=== PATIENT | female | born 1960 | race Caucasian/White ===

== ENCOUNTER → 2017-01-18 | Outpatient (CLI) | payer OTHER | END | disposition home or self-care (01) | LOC: YCFC.O 09:50 | PROVIDERS: ATTEND Nurse Practitioner Family | DX: E78.2 Mixed hyperlipidemia (principal); I10 Essential (primary) hypertension; E06.5 Other chronic thyroiditis; R53.83 Other fatigue; Z13.29 Encounter for screening for other suspected endocrine disorder; Z68.39 Body mass index [BMI] 39.0-39.9, adult ==

== ENCOUNTER → 2017-03-01 | Outpatient (CLI) | payer OTHER | END | disposition home or self-care (01) | LOC: YCFC.O 11:19 | PROVIDERS: ATTEND Nurse Practitioner Family | DX: N89.8 Other specified noninflammatory disorders of vagina (principal) ==

== ENCOUNTER → 2017-04-15 | Outpatient (CLI) | payer MEDICAID | END | disposition home or self-care (01) | LOC: LAB.O 08:39 | PROVIDERS: ATTEND Nurse Practitioner Family | DX: E78.2 Mixed hyperlipidemia (principal); E11.9 Type 2 diabetes mellitus without complications ==

== ENCOUNTER → 2017-04-18 | Outpatient (CLI) | payer OTHER ==
--- NOTE | 2017-04-19 12:27 | MAM ---
EXAM DESCRIPTION: Screening Mammogram,Bilateral: Digital Mammography CLINICAL HISTORY: 56 years Female SCREENING history by radiology. COMPARISON: 2-D digital screening bilateral study 10/20/2015 and 2-D diagnostic digital bilateral study 06/23/2013.. No prior reports available. TECHNIQUE: Bilateral CC and MLO projection full-field images, 2-D digital screening mammographic technique. CAD was utilized. FINDINGS: The breast parenchymal density pattern is: Scattered areas of fibroglandular density. No skin thickening or nipple retraction bilateral axillary and intramammary lymph nodes. No focal, stellate mass or density, focal asymmetry , and no suspicious microcalcifications bilaterally. Stable mammograms compared to the prior study, taking into account differences in mammographic technique. IMPRESSION: BI-RADS CATEGORY: 2 - BENIGN FINDINGS. FOLLOW UP: Routine digital bilateral screening, one year interval from April 2017. Written communication explaining the IMPRESSION and follow-up, will be mailed to the patient and referring health care provider. According to the [employer], yearly mammograms are recommended starting at age 40 and continuing as long as a woman is in good health. Any breast change noted on a breast self-exam should be reported promptly to the patient's healthcare provider. Breast MRI is recommended for women with an approximately 20-25% or greater lifetime risk of breast cancer, including women with a strong family history of breast or ovarian cancer and women who have been treated for Hodgkin's disease. A negative mammographic report should not delay tissue diagnosis in patients with significant clinical history or physical findings. Extremely dense breast tissue limits the sensitivity of digital mammography. Electronically signed by: Eliud De La O MD 04/19/2017 12:26 PM [facility]
== END | disposition home or self-care (01) ==
LOC: YCFC.O 09:29
PROVIDERS: ATTEND Nurse Practitioner Family
DX: Z12.31 Encounter for screening mammogram for malignant neoplasm of breast (principal)

== ENCOUNTER → 2017-10-10 | Outpatient (CLI) | payer OTHER | LOC: YCFC.O 09:10 | PROVIDERS: ATTEND Nurse Practitioner Family | DX: E78.2 Mixed hyperlipidemia (principal); E11.9 Type 2 diabetes mellitus without complications; I10 Essential (primary) hypertension ==

== ENCOUNTER 2017-12-20 09:06 | Emergency (ER) | payer OTHER ==
[2017-12-20 09:20] VITALS: TEMP 98.1; O2SAT 98
[2017-12-20] MEDS ORDERED: KETOROLAC TROMETHAMINE INJ 60 MG/2 ML VIAL IM ONE (09:31)
[2017-12-20] MEDS ORDERED: CYCLOBENZAPRINE HCL 10 MG TAB PO ONE (09:31)
--- NOTE | 2017-12-20 09:34 | ED.PDOC ---
History of Present Illness - General Chief Complaint: Neck Injury/Pain Stated Complaint: woke up with Time Seen by Provider: 12/20/17 09:31 Source: patient Exam Limitations: no limitations - History of Present Illness Initial Comments: patient comes in today with severe left sided neck and shoulder pain. Patient states she woke up with it stiff and difficult to move. She states she has very severe pain if she tries to move her head. Yesterday she was moving furniture and did work this early harder than her normal baseline. She has no other acute complaints no headache, vision change, chest pain or shortness of breath. Her blood pressure is very elevated but she admits she did just take her blood pressure pill and often is uncontrolled usually in the 160s systolic. Patient has no other acute complaints Occurred: this morning Pain - Upper Extremity: severe: Shoulder, left Method of Injury: other - see dictated note Improving Factors: rest Worsening Factors: movement Allergies/Adverse Reactions: Allergies Codeine Allergy (Verified 12/20/17 09:20) Vomitting Home Medications: Ambulatory Orders Metformin HCl 01/26/14 Micardis 01/26/14 Paxil 01/26/14 Valsartan 01/26/14 Cyclobenzaprine HCl [Flexeril] 5 mg PO TID 5 Days #15 tab 12/20/17 Review of Systems - Review of Systems Constitutional: States: no symptoms reported. Denies: chills, fever EENTM: States: no symptoms reported Respiratory: States: no symptoms reported. Denies: cough, wheezing Cardiology: States: no symptoms reported. Denies: chest pain Gastrointestinal/Abdominal: States: no symptoms reported. Denies: abdominal pain, vomiting Musculoskeletal: States: see HPI Past Medical History (General) - Patient Medical History Hx Stroke: Yes - TIA x 4 Hx of COPD: Yes Hx Cardiac Disorders: Yes Hx Congestive Heart Failure: No Hx Pacemaker: No Hx Hypertension: Yes Hx Diabetes: Yes Hx Renal Disease: Yes Hx Hepatitis C: Yes Hx MRSA: Yes - Skin 2007 MRSA Source:: Wound Surgical History: cholecystectomy, Hysterectomy, other - Vaccination History Hx Influenza Vaccination: No Hx Pneumococcal Vaccination: Yes - 2011 - Social History Hx Tobacco Use: Yes Family Medical History - Family History Mother Family History: No Known Living Status: Still Living Physical Exam - Physical Exam General Appearance: No apparent distress Eyes, Ears, Nose, Throat Exam: PERRL/EOMI, normal ENT inspection, TMs normal Neck: other - L sternocleidomastoid with tightness and pain to palpation but no defect. Cardiovascular/Respiratory: regular rate, rhythm, no M/R/G, normal peripheral pulses, no JVD, normal breath sounds, no respiratory distress Abdominal Exam: non-tender Shoulder Exam: normal inspection, non-tender, no evidence of injury, normal ROM Elbow/Forearm Exam: normal inspection, non-tender, no evidence of injury, normal ROM Wrist Exam: normal inspection, non-tender, no evidence of injury DTR: 2+: Biceps, left Neuro/Tendon: normal sensation, normal motor functions, normal tendon functions Mental Status: alert, oriented x 3 Skin Exam: normal color Progress - Progress Progress: 12/20/17 09:36 Discussed with patient need to slowly move the area and should put heat to area today. Sedation precautions with the flexeril. Should use OTC IBU 800 mg po BID x 5 days. Follow up with PCP if not better in 2-3 days. Return to ER for increased pain, decreased sensation or change in symptoms. Departure - Departure Clinical Impression: Sternocleidomastoid muscle tenderness Disposition: Discharge to Home or Self Care Condition: Good Departure Forms: ED Discharge - Pt. Copy, Patient Portal Self Enrollment Instructions: DI for Neck Pain Diet: diabetic diet Activity: increase activity as tolerated Referrals: Gayatri Figueroa NP [Primary Care Provider] - 1-2 Weeks Prescriptions: Cyclobenzaprine HCl [Flexeril] 5 mg PO TID 5 Days #15 tab Home Medications: Ambulatory Orders Metformin HCl 01/26/14 Micardis 01/26/14 Paxil 01/26/14 Valsartan 01/26/14 Cyclobenzaprine HCl [Flexeril] 5 mg PO TID 5 Days #15 tab 12/20/17 Additional Instructions: Discussed with patient need to slowly move the area and should put heat to area today. Sedation precautions with the flexeril. Should use OTC IBU 800 mg po BID x 5 days. Follow up with PCP if not better in 2-3 days. Return to ER for increased pain, decreased sensation or change in symptoms.
[2017-12-20 10:03] VITALS: BP 164/102
== END 2017-12-20 09:50 | disposition home or self-care (01) ==
LOC: ER 09:06
DX: M54.2 Cervicalgia (principal); M25.512 Pain in left shoulder; E11.22 Type 2 diabetes mellitus with diabetic chronic kidney disease; I12.9 Hypertensive chronic kidney disease with stage 1 through stage 4 chronic kidney disease, or unspecified chronic kidney disease; N18.9 Chronic kidney disease, unspecified; J44.9 Chronic obstructive pulmonary disease, unspecified; I51.9 Heart disease, unspecified; Z87.891 Personal history of nicotine dependence; Z86.73 Personal history of transient ischemic attack (TIA), and cerebral infarction without residual deficits; Z79.84 Long term (current) use of oral hypoglycemic drugs; Z79.899 Other long term (current) drug therapy

== ENCOUNTER 2018-05-08 11:20 | Inpatient (IN) | payer OTHER ==
--- NOTE | 2018-05-08 12:03 | RAD ---
EXAM DESCRIPTION: Chest,1 View CLINICAL HISTORY: Right-sided facial numbness. Dysarthria. Stroke FINDINGS/ IMPRESSION: Normal cardiomediastinal silhouette. No edema, infiltrate or effusion Electronically signed by: Faisal Gonzalez MD 05/08/2018 12:02 PM [facility]
--- NOTE | 2018-05-08 12:08 | CT ---
EXAM DESCRIPTION: CT head without contrast CLINICAL HISTORY: Dysarthria. Facial numbness. Stroke. TIA COMPARISON: MRI brain 10/06/2015 TECHNIQUE: Noncontrast spiral CT of the brain. This exam was performed according to our departmental dose-optimization program, which includes automated exposure control, adjustment of the mA and/or kV according to patient size and/or use of iterative reconstruction technique FINDINGS: No intracranial hemorrhage, diagnostic acute cortical infarction or mass lesion. Normal manzanares-white matter differentiation. Basal ganglia signal abnormality caudate head on the left, previous remote lacunar/dilated perivascular space seen on previous MRI. Hypodensity anterior column internal capsule probably remote although not seen on the CT from October 2015. Hypodensity in the deep right frontal crisostomo radiata more suggestive of an acute white matter infarct. Other periventricular hypodensity likely remote microvascular ischemia Ventricles are normal in size and configuration No calvarial or skullbase fracture. No fluid in the paranasal sinuses or mastoid air cells IMPRESSION: Concern for acute infarct right frontal deep crisostomo radiata/anterior column junction. CT is insensitive for early evaluation of acute stroke. Recommend MRI. White matter disease bilaterally likely remote microvascular ischemia as well Electronically signed by: Faisal Gonzalez MD 05/08/2018 12:07 PM [facility]
[2018-05-08] MEDS ORDERED: METOPROLOL TARTRATE INJ 5 MG/5 ML VIAL IV ONE ×2 (12:25→12:28)
[2018-05-08] MEDS ORDERED: SODIUM CHLORIDE 0.9% 1000ML 1,000 ML IVS ONE (13:16)
[2018-05-08] MEDS ORDERED: MAGNESIUM SULFATE PREMIX 2GM 2 GM in PREMIX BAG 1 BAG IVPB ONE (13:16)
[2018-05-08] MEDS ORDERED: INSULIN, REG.(HUMAN) 100 U/ML VIAL IV ONE (13:16)
[2018-05-08] MEDS ORDERED: cefTRIAXone SODIUM 1 GM in SODIUM CHL 0.9% 50ML MIN-BAG+ 50 ML IVPB ONE (13:17)
[2018-05-08] MEDS ORDERED: ASPIRIN TABLET 325 MG TAB PO ONE (13:18)
[2018-05-08] MEDS ORDERED: cefTRIAXone SODIUM 1 GM VIAL ONE (13:23)
[2018-05-08] MEDS ORDERED: MAGNESIUM SULFATE PREMIX 2GM 50 ML IVPB ONE (13:23)
[2018-05-08] MEDS ORDERED: SODIUM CHL 0.9% 50ML MIN-BAG+ 50 ML IVPB ONE (13:23)
--- NOTE | 2018-05-08 14:11 | ED.PDOC ---
History of Present Illness - General Chief Complaint: Neuro Symptoms/Deficits Stated Complaint: Right sided facial drooping and numbness Time Seen by Provider: 05/08/18 11:32 Source: patient, family Exam Limitations: no limitations - History of Present Illness Initial Comments: the patient is a 57-year-old female presenting to the emergency room secondary to symptoms concerning for stroke. The patient reports that around 1 AM this morning she woke up and had some slurred speech along with a mild facial droop. She thinks she may have had some mild right sided weakness or discoordination as well. No falls. This morning when she woke up at around 7 AM she was having some difficulty with swallowing and was still having some slurred speech and thought she might still have a mild facial droop on the right. By the time she arrives here she is not having any difficulty swallowing but still does have some very mild dysarthria. No expressive aphasia. There is no evidence of any facial asymmetry. No obvious weakness of the right side. Gait appears normal. Coordination appears normal. No visual changes. No trauma. She reports that she has had small strokes and TIAs in the past that she does not appear to be on any blood thinner of any form. She is a diabetic who is poorly controlled. She also has hypertension which is significantly present here today. Timing/Duration: other - 10-11 hours by time of arrival here Improving Factors: nothing Worsening Factors: nothing Associated Symptoms: malaise Allergies/Adverse Reactions: Allergies Codeine Allergy (Verified 12/20/17 09:20) Vomitting Home Medications: Ambulatory Orders Albuterol Sulfate [Proair Hfa] 1 puff INH BID 12/20/17 Esomeprazole Magnesium [Nexium] 40 mg PO DAILY 12/20/17 Insulin Detemir [Levemir Pen] 24 units PO BEDTIME 12/20/17 Valsartan [Diovan] 320 mg PO DAILY 12/20/17 Insulin Aspart [Novolog Flexpen] 20 unit SC DAILY 05/08/18 OXcarbazepine [Trileptal] 600 mg PO DAILY@0700 05/08/18 PARoxetine HCL [Paxil] 20 mg PO DAILY 05/08/18 Review of Systems - Review of Systems Constitutional: States: malaise, weakness - earlier in the night but has resolved EENTM: States: see HPI Respiratory: States: no symptoms reported Cardiology: States: no symptoms reported Gastrointestinal/Abdominal: States: no symptoms reported Genitourinary: States: no symptoms reported Musculoskeletal: States: no symptoms reported Skin: States: no symptoms reported Neurological: States: see HPI All other Systems: No Change from Baseline Past Medical History (General) - Patient Medical History Hx Stroke: Yes - TIA x 4 Hx of COPD: Yes Hx Cardiac Disorders: Yes Hx Congestive Heart Failure: No Hx Pacemaker: No Hx Hypertension: Yes Hx Diabetes: Yes Hx Renal Disease: Yes Hx Hepatitis C: Yes Hx MRSA: Yes - Skin 2007 MRSA Source:: Wound Surgical History: cholecystectomy, Hysterectomy - Vaccination History Hx Influenza Vaccination: No Hx Pneumococcal Vaccination: No - Social History Hx Tobacco Use: No Family Medical History - Family History Mother Family History: No Known Living Status: Still Living Physical Exam - Physical Exam General Appearance: Alert, Comfortable, No apparent distress Eye Exam: bilateral normal Ears, Nose, Throat: hearing grossly normal, normal ENT inspection, normal pharynx Neck: full range of motion, supple, normal inspection Respiratory: lungs clear, normal breath sounds, no respiratory distress, no accessory muscle use Cardiovascular/Chest: normal peripheral pulses, regular rate, rhythm, no edema Peripheral Pulses: radial,right: 2+, radial,left: 2+, dorsalis pedis,right: 2+, dorsalis pedis,left: 2+ Gastrointestinal/Abdominal: non tender, soft Rectal Exam: deferred Back Exam: normal inspection, no CVA tenderness, no vertebral tenderness Extremity: normal range of motion, non-tender, normal inspection, no pedal edema , normal capillary refill Neurologic: bander operator II-XII nml as tested, no motor/sensory deficits, alert, normal mood/affect, oriented x 3, other - hazel mild dysarthria Skin Exam: normal color Comments: Vital Signs - 24 hr 05/08/18 12:00 Temperature 97.9 F Pulse Rate [ 80 Right Brachial] Respiratory 20 Rate Blood Pressure 184/102 [Right Arm] O2 Sat by Pulse 98 Oximetry Progress - Progress Progress: 05/08/18 14:14 the patient is a 57-year-old female presenting to emergency room with what appears to be a small stroke with really only residual mild dysarthria. The patient is really past the window of functional lytics. Her dysphagia appears to be resolved. No other obvious neurological deficits at this time. She does also have significantly uncontrolled diabetes with a blood sugar of 422. She has received a dose of IV insulin and will need further correction over the next day or 2. She is mildly dehydrated and is receiving a liter of IV fluids. Blood pressures are borderline elevated and she has received 1 dose of IV Lopressor and she may yet need further oral correction if they continue to remain above the 180 range on the systolic end. She does also have a small urinary tract infection and will need to be treated for that. Her magnesium was low and she has received a dose of IV magnesium. Admit for further workup and monitoring. Based on the symptoms, timeframe and CT scan I do not believe the patient would benefit from transfer to an interventional neurology Center. the patient has received a dose of aspirin and plavix. 05/08/18 14:18 - Results/Orders Results/Orders: chest x-ray shows no acute processes Head CT shows multiple previous areas of ischemic changes. Possible small acute area in the right frontal crisostomo. Laboratory Tests 05/08/18 05/08/18 05/08/18 11:35 11:35 11:35 WBC 7.4 RBC 4.92 Hgb 14.6 Hct 43.2 MCV 87.8 MCH 29.7 MCHC 33.8 RDW 13.4 Plt Count 249 MPV 8.9 Absolute Neuts (auto) 4.40 Absolute Lymphs (auto) 2.10 Absolute Monos (auto) 0.50 Absolute Eos (auto) 0.20 Absolute Basos (auto) 0.10 Neutrophils % 60.3 Lymphocytes % 28.5 Monocytes % 7.1 Eosinophils % 3.1 Basophils % 1.0 PT 10.4 INR 1.04 PTT (SP) 25.6 D-Dimer, Quantitative 0.26 Sodium 132 L Potassium 3.6 Chloride 96 L Carbon Dioxide 25 Anion Gap 14.6 BUN 12 Creatinine 0.61 BUN/Creatinine Ratio 19.7 Random Glucose 422 H* Serum Osmolality 281.7 Lactic Acid Calcium 9.8 Magnesium 1.5 L Total Bilirubin 0.6 AST 25 ALT 19 Alkaline Phosphatase 84 Creatine Kinase 29 CK-MB (CK-2) 0.8 CK-MB (CK-2) % Not Reportable Troponin I < 0.02 B-Natriuretic Peptide 39.4 Serum Total Protein 8.6 H Albumin 4.2 Globulin 4.4 H Albumin/Globulin Ratio 1.0 L TSH 1.83 Urine Color Urine Appearance Urine pH Ur Specific Rudyard Urine Protein Urine Glucose (UA) Urine Ketones Urine Blood Urine Nitrite Urine Bilirubin Urine Urobilinogen Ur Leukocyte Esterase Urine RBC Urine WBC Ur Epithelial Cells Urine Bacteria 05/08/18 05/08/18 11:35 12:50 WBC RBC Hgb Hct MCV MCH MCHC RDW Plt Count MPV Absolute Neuts (auto) Absolute Lymphs (auto) Absolute Monos (auto) Absolute Eos (auto) Absolute Basos (auto) Neutrophils % Lymphocytes % Monocytes % Eosinophils % Basophils % PT INR PTT (SP) D-Dimer, Quantitative Sodium Potassium Chloride Carbon Dioxide Anion Gap BUN Creatinine BUN/Creatinine Ratio Random Glucose Serum Osmolality Lactic Acid 3.3 H* Calcium Magnesium Total Bilirubin AST ALT Alkaline Phosphatase Creatine Kinase CK-MB (CK-2) CK-MB (CK-2) % Troponin I B-Natriuretic Peptide Serum Total Protein Albumin Globulin Albumin/Globulin Ratio TSH Urine Color Yellow Urine Appearance Cloudy Urine pH 6.0 Ur Specific Rudyard <= 1.005 Urine Protein Negative Urine Glucose (UA) >=1000 H Urine Ketones Negative Urine Blood Trace-lysed H Urine Nitrite Negative Urine Bilirubin Negative Urine Urobilinogen 0.2 Ur Leukocyte Esterase Moderate H Urine RBC 1-3 Urine WBC 20-30 H Ur Epithelial Cells 1-3 Urine Bacteria 1+ - EKG/XRAY/CT CT Ordered: Yes Departure - Departure Clinical Impression: Ischemic stroke, Hypomagnesemia, Uncontrolled insulin dependent diabetes mellitus, Mild dehydration Hypertension Qualifiers: Hypertension type: unspecified Qualified Code(s): I10 - Essential (primary) hypertension Disposition: Admit Patient Referrals: Gayatri Figueroa NP [Primary Care Provider] - 1-2 Weeks Home Medications: Ambulatory Orders Albuterol Sulfate [Proair Hfa] 1 puff INH BID 12/20/17 Esomeprazole Magnesium [Nexium] 40 mg PO DAILY 12/20/17 Insulin Detemir [Levemir Pen] 24 units PO BEDTIME 12/20/17 Valsartan [Diovan] 320 mg PO DAILY 12/20/17 Insulin Aspart [Novolog Flexpen] 20 unit SC DAILY 05/08/18 OXcarbazepine [Trileptal] 600 mg PO DAILY@0700 05/08/18 PARoxetine HCL [Paxil] 20 mg PO DAILY 05/08/18 Decision To Admit - Decistion To Admit Decision to Admit Reason: Medical Nature Decision to Admit Date: 05/08/18 Decision to Admit Time: 14:18
--- NOTE | 2018-05-08 14:43 | HP ---
SUPERVISING PHYSICIAN: Faisal Coppola MD CHIEF COMPLAINT: Right sided facial drooping and numbness. HISTORY OF PRESENT ILLNESS: This is a 57-year-old female who came to the Emergency Room secondary to symptoms that were concerning for stroke. She woke up at approximately 2 AM this morning and said she had some slurred speech and a right sided facial droop. She has had a history of transient ischemic attacks in the past. She has had three prior to this episode. She went back to sleep and woke up at 7 AM and had some difficulty swallowing as well as slurred speech, right sided facial droop and some numbness in her right hand. There were no problems with her right leg. She came to the Emergency Room and in the Emergency Room, her CBC was within normal limits. D-dimer was 0.26 and coags were within normal limits. Sodium was 132, potassium 3.6, chloride 96, carbon dioxide 25, magnesium 1.5, glucose 422, lactic acid 3.3. Her troponin was within normal limits. Her liver enzymes were within normal limits. CT of the head was done and showed concern for acute infarct, right frontal deep crisostomo radiata/anterior column junction, white matter disease bilaterally, likely remote microvascular ischemia as well. Her chest x-ray showed normal cardiomediastinal silhouette, no edema, infiltrate or effusion. I was called for admission to monitor stroke-like symptoms. PAST MEDICAL HISTORY: 1. Transient ischemic attack times four including one today. 2. Chronic obstructive pulmonary disease. 3. Palpitations. 4. Hypertension. 5. Diabetes mellitus, type 2, poorly controlled. 6. Tamika insufficiency. 7. Hepatitis C. 8. History of methicillin-resistant Staphylococcus aureus infection of the wound. PAST SURGICAL HISTORY: 1. Cholecystectomy. 2. Hysterectomy. OUTPATIENT MEDICATIONS: 1. Albuterol sulfate. 2. Nexium. 3. NovoLog insulin. 4. Levemir insulin. 5. Trileptal. 6. Paroxetine. 7. Valsartan. ALLERGIES: CODEINE, SULFA DRUGS. SOCIAL HISTORY: She smokes approximately five cigarettes a day. She drinks a six-pack of beer three to four times a week. She denies any illicit drug use. She is . She has three kids. She lives in [place] and she is disabled. She sees Gayatri Figueroa at [facility]. REVIEW OF SYSTEMS: GENERAL: Positive for malaise and weakness. Negative for fever or weight changes. HEENT: Positive for difficulty swallowing as well as right facial droop and blurry vision. Negative for sinus symptoms, ear pain or sore throat. RESPIRATORY: Negative for wheezing, coughing or shortness of breath. CARDIAC: Negative for chest pain, palpitations or tachycardia. GASTROINTESTINAL: Negative for nausea, vomiting, diarrhea, constipation. GENITOURINARY: Negative for hematuria, dysuria or polyuria. MUSCULOSKELETAL: Positive for right arm weakness and numbness. Negative for arthralgias, myalgias. SKIN: Negative for lesions or rashes. NEUROLOGIC: As per history of present illness. PHYSICAL EXAMINATION: VITAL SIGNS: Heart rate 77. Blood pressure 167/76. Respiratory rate 20. O2 saturation 93% on room air. GENERAL: This is a 57-year-old female patient who is lying in her hospital bed. She is in no acute distress. HEENT: Normocephalic, atraumatic. Pupils are equal and reactive. Oropharynx is clear. NECK: Supple without mass. RESPIRATORY: Essentially clear to auscultation bilaterally. CHEST: There is equal rise and fall of the chest with inspiration and expiration. CARDIOVASCULAR: Regular rate and rhythm. GASTROINTESTINAL: Abdomen is soft, nondistended, nontender. Bowel sounds are positive. EXTREMITIES: No cyanosis, clubbing or edema. There are equal record press operator bilaterally to her upper extremities. NEUROLOGIC: Cranial nerves II-XII are grossly intact. She is alert and oriented times three. She has very mild dysarthria. SKIN: Warm and dry. LABORATORY: Her followup lactic acid is 1.3. Blood sugars have run between 155 and 265. Urine culture is pending. Carotid artery ultrasound shows high velocity flow in the right internal carotid artery consistent with 50% to 69% proximal stenosis. All other labs and films have been reviewed via the EMR. IMPRESSION: 1. Transient ischemic attack with right sided weakness, slurred speech and blurry vision that was transient in nature and has resolved. 2. Hypertension. 3. Chronic obstructive pulmonary disease without exacerbation. 4. Diabetes mellitus, type 2, poorly controlled on insulin therapy. 5. History of methicillin-resistant Staphylococcus aureus infection of the wound. 6. History of hepatitis C. 7. History of renal insufficiency with creatinine of 0.61. PLAN: We will place the patient in observation. I have initiated the TIA/ stroke protocol. She has neuro checks q.4h. She is on telemetry. She is also on aggressive pulmonary hygiene including nebulizer treatments both scheduled and p.r.n. We will repeat her lab in the morning. She will also have a lipid panel in the morning. I have started her on an aspirin daily. I put her on Protonix for ulcer prophylaxis as well as Lovenox for DVT prophylaxis. She will need close followup with Gayatri Figueroa at [facility] for further workup. We will continue to monitor the patient closely and follow as needed. Dr. Coppola is the collaborating physician and available for consultation. #[id number] [facility]
[2018-05-08] MEDS: CLOPIDOGREL 75 MG TAB PO ONE (14:49)
[2018-05-08] MEDS ORDERED: SODIUM CHLORIDE 0.9% (FLUSH) 10 ML SYG IV PRN (15:10)
[2018-05-08] MEDS ORDERED: DEXTROSE 50% 25 GM/50 ML SYG IV PRN (15:18)
[2018-05-08] MEDS ORDERED: GLUCAGON INJ 1 MG VIAL SUBCU PRN (15:18)
[2018-05-08] MEDS ORDERED: ALBUTEROL SULFATE 2.5 MG/3 ML VIAL NEB PRN (15:18)
[2018-05-08] MEDS: IV SET AND CAP CHANGE INJ INJ SCH (15:38)
[2018-05-08] MEDS: ENOXAPARIN SODIUM 40 MG/0.4 ML SYG SUBCU SCH (16:02)
[2018-05-08] MEDS: INSULIN LISPRO 100 UNITS/ML PEN SUBCU SCH ×2 (16:11→21:05)
--- NOTE | 2018-05-08 16:33 | US ---
EXAM DESCRIPTION: Carotid Duplex CLINICAL HISTORY: TIA COMPARISON: None Available. TECHNIQUE: Carotid Doppler ultrasound FINDINGS: Right Submitted images show moderate calcified plaque in the proximal internal and external carotid arteries. There is flow in the proximal right ICA suggests 50-69% stenosis. Axial images through the carotid bulb show 41% area stenosis The following flow velocities were obtained: Common carotid artery peak systolic flow velocity measures 39-55 centimeters per second. Internal carotid artery peak systolic flow velocity measures 76-133 centimeters per second. External carotid artery peak systolic flow velocity measures 97 centimeters per second. Flow in the right vertebral artery is antegrade. The right internal carotid to common carotid peak systolic flow velocity ratio equals 3.1 which is abnormally elevated. Left Submitted images show normal caliber of the left common carotid, internal carotid and external carotid arteries with no significant stenosis. Mild soft plaque at the left carotid bifurcation. The following flow velocities were obtained: Common carotid artery peak systolic flow velocity measures 42-69 centimeters per second. Internal carotid artery peak systolic flow velocity measures 78-85 centimeters per second. External carotid artery peak systolic flow velocity measures 75 centimeters per second. Flow in the left vertebral artery is antegrade. The left internal carotid to common carotid peak systolic flow velocity ratio of 1.2 is normal. IMPRESSION: High velocity flow in the right internal carotid artery consistent with 50-69% proximal stenosis. Electronically signed by: Joshua Gill MD 05/08/2018 4:19 PM [employer] SU[employer] CO[employer]INATOR
[2018-05-08] MEDS: ALBUTEROL SULFATE 2.5 MG/3 ML VIAL NEB SCH ×2 (16:40→20:03)
[2018-05-08] MEDS ORDERED: PANTOPRAZOLE SODIUM IV 40 MG VIAL ONE (19:19)
[2018-05-08] MEDS ORDERED: OXcarbazepine 300 MG TAB PO ONE (19:19)
[2018-05-08] MEDS: INSULIN DETEMIR 100 UNITS/ML PEN SUBCU SCH (21:06)
[2018-05-08] MEDS: SODIUM CHLORIDE 0.9% (FLUSH) 10 ML SYG IV SCH (21:07)
[2018-05-09] MEDS: OXcarbazepine 300 MG TAB PO SCH (06:09)
[2018-05-09] MEDS: PANTOPRAZOLE SODIUM IV 40 MG VIAL IV SCH (06:09)
[2018-05-09] MEDS ORDERED: cloNIDine HCL 0.1 MG TAB PO ONE (06:32)
[2018-05-09] MEDS ORDERED: cloNIDine HCL 0.1 MG TAB PO PRN (06:34)
[2018-05-09] MEDS: INSULIN LISPRO 100 UNITS/ML PEN SUBCU SCH ×4 (07:42→20:59)
[2018-05-09] MEDS: ALBUTEROL SULFATE 2.5 MG/3 ML VIAL NEB SCH ×4 (08:26→20:22)
[2018-05-09] MEDS: VALSARTAN 80 MG TAB PO SCH (08:38)
[2018-05-09] MEDS: SODIUM CHLORIDE 0.9% (FLUSH) 10 ML SYG IV SCH ×2 (08:38→21:04)
[2018-05-09] MEDS: PARoxetine HCL 20 MG TAB PO SCH (08:38)
[2018-05-09] MEDS ORDERED: ASPIRIN TABLET 325 MG TAB PO SCH (09:00)
[2018-05-09] MEDS: CLOPIDOGREL 75 MG TAB PO SCH (09:03)
[2018-05-09] MEDS: amLODIPine BESYLATE 5 MG TAB PO SCH (09:43)
--- NOTE | 2018-05-09 10:55 | MRI ---
EXAM DESCRIPTION: Brain w/o Contrast CLINICAL HISTORY: TIA. Acute focal neurological deficit. COMPARISON: CT head 05/08/2018 TECHNIQUE: Non contrast MRI of the brain is performed according to our usual protocol including multiplanar multi sequence technique. FINDINGS: There is restricted diffusion consistent with an acute ischemic lacunar infarct in the left thalamus measuring 0.9 cm. Also demonstrated is an acute ischemic lacunar infarct in the anterior limb of the right internal capsule measuring up to 6 mm. This is superimposed on a chronic infarct in a similar location. There is normal configuration of the ventricles and sulci. No hemorrhage, mass effect, or midline shift. Mild T2/FLAIR hyperintensities in the supratentorial white matter. No abnormal extra-axial fluid collections are present. Normal flow voids are present. The calvarium is intact. Mucosal thickening in the maxillary sinuses and ethmoid air cells with air-fluid level in the right maxillary sinus. 2 cm right sphenoid mucous retention cyst or polyp. The mastoid air cells are clear. IMPRESSION: 1. Acute ischemic lacunar infarct in the left thalamus. 2. Acute lacunar infarct in the anterior limb of the right internal capsule, superimposed on a chronic infarct in a similar location. Given the bilateral infarcts, correlate for an embolic etiology. Electronically signed by: Naldo Song MD 05/09/2018 10:54 AM [employer]
[2018-05-09] MEDS ORDERED: fentaNYL PATCH 25 MCG/HR 1 EA PATCH TD SCH (12:30)
[2018-05-09] MEDS: ENOXAPARIN SODIUM 40 MG/0.4 ML SYG SUBCU SCH (15:23)
[2018-05-09] MEDS: INSULIN DETEMIR 100 UNITS/ML PEN SUBCU SCH (20:59)
[2018-05-10] MEDS: PANTOPRAZOLE SODIUM IV 40 MG VIAL IV SCH (06:18)
[2018-05-10] MEDS: INSULIN LISPRO 100 UNITS/ML PEN SUBCU SCH ×4 (07:29→21:05)
[2018-05-10] MEDS: OXcarbazepine 300 MG TAB PO SCH (07:31)
[2018-05-10] MEDS: ALBUTEROL SULFATE 2.5 MG/3 ML VIAL NEB SCH ×4 (07:56→22:27)
[2018-05-10] MEDS: PARoxetine HCL 20 MG TAB PO SCH (08:26)
[2018-05-10] MEDS: SODIUM CHLORIDE 0.9% (FLUSH) 10 ML SYG IV SCH ×2 (08:26→21:09)
[2018-05-10] MEDS: CLOPIDOGREL 75 MG TAB PO SCH (08:26)
[2018-05-10] MEDS: amLODIPine BESYLATE 5 MG TAB PO SCH (08:26)
[2018-05-10] MEDS: VALSARTAN 80 MG TAB PO SCH (08:26)
--- NOTE | 2018-05-10 12:16 | PN ---
DATE: 05/09/18 SUPERVISING PHYSICIAN: Faisal Coppola M.D. SUBJECTIVE: The patient is sitting up in her room. She has no complaints of dizziness, chest pain, shortness of breath. She does continue to have some slight numbness in that right hand and her words continue to be very mildly slurred. I explained to her that she did have a stroke per the MRI report and that we were going to seek some sort of rehabilitation for speech therapy as well as physical therapy to optimize her post stroke care and outcomes. She agreed to that. Her daughter was at the bedside. She felt that that would be in the best interest of the patient. OBJECTIVE: VITAL SIGNS: Temperature 98.6, heart rate 79, blood pressure 149/100 , respiratory rate 18, O2 sat 94% on room air. RESPIRATORY: Essentially clear to auscultation bilaterally. CARDIAC: Regular rate and rhythm. GASTROINTESTINAL: Abdomen is soft, nondistended, non-tender. Bowel sounds are positive. NEUROLOGIC: She is awake and alert. She does slur her speech slightly. She does have some very mild weakness on that right hand. It was reported by Physical Therapy that she does drag that right foot somewhat when ambulating. She has a slight limp and somewhat drags that right foot when ambulating. LABORATORY: CBC was within normal limits. Blood sugars have run between 176 and 355. Electrolytes were basically within normal limits. She did have a slightly low magnesium at 1.7. Urine culture is pending. Brain MRI report shows: 1) Acute ischemic lacunar infarct in the left thalamus. 2) Acute lacunar infarct in the anterior limb of the right internal capsule superimposed on a chronic infarct in a similar location. Given the bilateral infarcts, correlate for an embolic etiology. All other labs and films have been reviewed via the EMR. ASSESSMENT: 1. Acute ischemic infarct of the left thalamus as well as an acute lacunar infarct in the anterior limb of the right internal capsule superimposed on a chronic infarct presently on Plavix and having some residual right sided weakness with some slurred speech. 2. Hypertension, poorly controlled. 3. Chronic obstructive pulmonary disease without exacerbation. 4. Diabetes mellitus, type 2, poorly controlled on insulin therapy. 5. History of methicillin-resistant Staphylococcus aureus infection of the wound. 6. History of hepatitis C. 7. History of renal insufficiency with creatinine on admission of 0.61. PLAN: Since the MRI was positive for ischemic injury, we will try to get her some therapy for rehabilitation for her right sided weakness. She also needs some speech therapy. Our utilization review nurses have attempted to place her in several rehab facilities and we have been unable to place her in a facility so far. We are further investigating several other options such as outpatient therapy or another rehabilitation facility that takes her Medicaid. If she is unable to get into a facility or some rehab over the next day, we will need to change her to an inpatient and do some physical therapy here until she can be placed. Her blood pressure has been slightly elevated so I have added some Amlodipine. We will monitor her blood pressures closely. I have also taken her off of her aspirin and added Plavix daily. She will need a followup with Nery Lepe which I have obtained at this time at [facility]. She will also need a neurologic consultation. I believe she does have a neurologist in [place] but she was not sure of his name. Until we can get her some rehabilitation with physical therapy and speech therapy will continue to monitor closely here, adjust her blood pressure medicines and treat the patient as needed. #[id number] [facility]
[2018-05-10] MEDS ORDERED: cloNIDine HCL 0.1 MG TAB PO PRN (13:54)
[2018-05-10] MEDS: ENOXAPARIN SODIUM 40 MG/0.4 ML SYG SUBCU SCH (15:28)
[2018-05-10] MEDS: INSULIN DETEMIR 100 UNITS/ML PEN SUBCU SCH (21:07)
[2018-05-11] MEDS: PANTOPRAZOLE SODIUM IV 40 MG VIAL IV SCH (06:03)
[2018-05-11] MEDS: INSULIN LISPRO 100 UNITS/ML PEN SUBCU SCH ×4 (07:48→21:17)
[2018-05-11] MEDS: OXcarbazepine 300 MG TAB PO SCH (07:50)
[2018-05-11] MEDS: ALBUTEROL SULFATE 2.5 MG/3 ML VIAL NEB SCH ×4 (08:24→20:51)
[2018-05-11] MEDS: CLOPIDOGREL 75 MG TAB PO SCH (08:31)
[2018-05-11] MEDS: PARoxetine HCL 20 MG TAB PO SCH (08:31)
[2018-05-11] MEDS: SODIUM CHLORIDE 0.9% (FLUSH) 10 ML SYG IV SCH ×2 (08:31→21:15)
[2018-05-11] MEDS: amLODIPine BESYLATE 5 MG TAB PO SCH (08:31)
[2018-05-11] MEDS: VALSARTAN 80 MG TAB PO SCH (08:31)
--- NOTE | 2018-05-11 14:17 | PN ---
DATE: 05/10/18 SUPERVISING PHYSICIAN: Faisal Coppola M.D. SUBJECTIVE: The patient is sitting up in bed. We have discussed her discharge plan that we are going to try to get her in with speech therapy as well as physical therapy. At this point she continues complaints of some mild weakness, especially on that right side but denies chest pain, nausea, vomiting, diarrhea or constipation. OBJECTIVE: VITAL SIGNS: Temperature 98.6, heart rate 80, blood pressure 175/91 , respiratory rate 20, O2 sat 98% on room air. LABORATORY: Blood sugars have run between 257 to 308. Urine culture shows no urogenital mary ellen present. No common pathogens. All other labs and films have been reviewed via the EMR. ASSESSMENT: 1. Acute ischemic infarct of the left thalamus as well as an acute lacunar infarct in the anterior limb of the right internal capsule superimposed on a chronic infarct presently on Plavix and having some residual right sided weakness with some slurred speech. 2. Hypertension, poorly controlled. She did have a hypertensive crisis on admission with a blood pressure of 199/98. 3. Chronic obstructive pulmonary disease without exacerbation. 4. Diabetes mellitus, type 2, poorly controlled on insulin therapy. 5. History of methicillin-resistant Staphylococcus aureus infection of the wound. 6. History of hepatitis C. 7. History of renal insufficiency with creatinine on admission of 0.61. PLAN: We will continue present supportive care. We are continuing to attempt to place her in a rehab facility or get her some outpatient physical therapy as well as speech therapy. She has been changed to a full admission from observation as she has very poor blood pressure control and we are monitoring her stroke symptoms. She does have a few good blood pressures occasionally on the Amlodipine but I may have to adjust that later and add another medication. She will continue on her Plavix. She will need followup with Nery Lepe and a neurologic consultation. She said she had a neurologist in [place] but does not know their name. Hopefully tomorrow we can get her placed in a rehab facility or get her set up with outpatient rehab, including physical therapy and speech therapy. Until then will monitor closely and follow as needed. Dr. Coppola is the collaborating physician available for consultation. [facility][id number] [facility]
[2018-05-11] MEDS: ENOXAPARIN SODIUM 40 MG/0.4 ML SYG SUBCU SCH (15:24)
[2018-05-11] MEDS: IV SET AND CAP CHANGE INJ INJ SCH (15:24)
--- NOTE | 2018-05-11 18:04 | PN ---
DATE: 05/11/18 SUPERVISING PHYSICIAN: Faisal Coppola M.D. SUBJECTIVE: The patient is sitting up in her bed. Her daughter is at her bedside. She continues complaints of weakness but has had no changes in her neurologic status. She is quite worried about not being able to get rehab and I have assured her we were doing everything we could. OBJECTIVE: VITAL SIGNS: She is afebrile, heart rate 103, blood pressure 189/ 97. The last one was 138/90. Respiratory rate 18, O2 sat 95% on room air. RESPIRATORY: Essentially clear to auscultation bilaterally. CARDIAC: Regular rate and rhythm. At times she is slightly tachycardic. GASTROINTESTINAL: Abdomen is soft, nondistended, non-tender. Bowel sounds are positive. NEUROLOGIC: She continues having weakness to that right hand. She does have some slightly slurred speech but she is awake, alert and oriented times three. LABORATORY: Blood sugars have run between 289 and 360. Urine culture shows urogenital mary ellen present. No common pathogens. All other labs and films have been reviewed via the EMR. ASSESSMENT: 1. Acute ischemic infarct of the left thalamus as well as an acute lacunar infarct in the anterior limb of the right internal capsule superimposed on a chronic infarct presently on Plavix and having some residual right sided weakness with some slurred speech. 2. Hypertension, poorly controlled. She did have a hypertensive crisis on admission with a blood pressure of 199/98. Today her blood pressures have run between 189/97 and 138/90. 3. Chronic obstructive pulmonary disease without exacerbation. 4. Diabetes mellitus, type 2, poorly controlled on insulin therapy. 5. History of methicillin-resistant Staphylococcus aureus infection of the wound. 6. History of hepatitis C. 7. History of renal insufficiency with creatinine on admission of 0.61. PLAN: We will continue present supportive care. Hopefully tomorrow we could either have her placed in a rehab facility to help with her physical therapy and speech therapy. If not, hopefully we can find an outpatient physical therapy and speech therapy that will be willing to take her [place]. She was placed on Amlodipine several days ago and will continue to monitor her blood pressure closely. She is on the max dose of her ARB. Occasionally she does have a good blood pressure, so will watch it another day or so. She will need close followup with Nery Lepe. Will also need a neurologic consultation. She said she had a neurologist in [place] but does not know their name. I have also increased her long-acting insulin at night to 28 units per night. It may need to go up if her blood sugars continue to be poorly controlled. Otherwise we will continue to monitor and follow as needed. Dr. Coppola is the collaborating physician available for consultation. [facility][id number] [facility]
[2018-05-11] MEDS: INSULIN DETEMIR 100 UNITS/ML PEN SUBCU SCH (21:16)
[2018-05-12] MEDS: PANTOPRAZOLE SODIUM IV 40 MG VIAL IV SCH (06:21)
[2018-05-12] MEDS: OXcarbazepine 300 MG TAB PO SCH (06:21)
[2018-05-12] MEDS: INSULIN LISPRO 100 UNITS/ML PEN SUBCU SCH (07:02)
[2018-05-12] MEDS: ALBUTEROL SULFATE 2.5 MG/3 ML VIAL NEB SCH (07:54)
[2018-05-12] MEDS: SODIUM CHLORIDE 0.9% (FLUSH) 10 ML SYG IV SCH (08:13)
[2018-05-12] MEDS: CLOPIDOGREL 75 MG TAB PO SCH (08:13)
[2018-05-12] MEDS: PARoxetine HCL 20 MG TAB PO SCH (08:13)
[2018-05-12] MEDS: VALSARTAN 80 MG TAB PO SCH (08:13)
[2018-05-12] MEDS: amLODIPine BESYLATE 5 MG TAB PO SCH (08:13)
[2018-05-12] MEDS ORDERED: MAGNESIUM SULFATE PREMIX 2GM 2 GM in PREMIX BAG 1 BAG IVPB ONE (08:43)
[2018-05-12] MEDS ORDERED: MAGNESIUM SULFATE PREMIX 2GM 50 ML IVPB ONE (08:47)
[2018-05-12] MEDS ORDERED: amLODIPine BESYLATE 5 MG TAB PO SCH (09:00)
[2018-05-12] MEDS ORDERED: amLODIPine BESYLATE 5 MG TAB PO ONE (09:09)
[2018-05-12 10:00] VITALS: BP 176/97; TEMP 97.9; O2SAT 96
--- NOTE | 2018-05-12 13:36 | DS ---
SUPERVISING PHYSICIAN: Gerardo Brown MD ADMISSION DIAGNOSIS: 1. Transient ischemic attack with right sided weakness, slurred speech and blurry vision, transient in nature and has resolved. 2. Hypertension. 3. Chondroplasty without exacerbation. 4. Diabetes mellitus, type 2, poorly controlled on insulin therapy. 5. History of methicillin-resistant Staphylococcus aureus wound infection. 6. History of hepatitis C. 7. History of renal insufficiency. DISCHARGE DIAGNOSIS: 1. Acute ischemic lacunar infarct in the left thalamus as well as anterior limb of the right internal capsule superimposed on a chronic infarct in similar location. 2. Hypertension. 3. Chronic obstructive pulmonary disease without exacerbation. 4. Diabetes mellitus, type 2, poorly controlled. 5. History of methicillin-resistant Staphylococcus aureus wound infection. 6. History of hepatitis C. 7. History of renal insufficiency. HOSPITAL COURSE: This is a 57-year-old female who came to the Emergency Room with symptoms of slurred speech and right sided facial droop. She states she had a transient ischemic attack in the past times three. She went back to sleep and woke up at 7 AM and had difficulty swallowing, slurred speech, right facial droop and numbness in her right hand. For those reasons, she came to the Emergency Room. She was out of the TPA window. She was admitted with transient ischemic attack. Her symptoms seemed to resolve, however, she did have an MRI which indicated the stroke. Therefore, she was changed to a full admission and was admitted. She was placed on Plavix. She was having some difficulties with blood pressure and Norvasc was added. She had some p.r.n. clonidine as well. However, over the four days of admission, her physical symptoms resolved and she was able to walk without any difficulties at all. Her slurred speech spontaneously resolved as well. She was not having any residual symptoms from the stroke that were seen on MRI. For those reasons, she wanted to be discharged in addition to the fact that she was stable to be discharged and not requiring any Acute Care hospital stay. She was discharged home in stable condition on a diabetic diet. Activity is as tolerated. She has an followup appointment with Gayatri Figueroa on 05/15/18 at 2 PM. NEW MEDICATIONS: 1. Norvasc 10 mg p.o. daily. 2. Plavix 75 mg p.o. daily. #[id number] [facility]
== END 2018-05-12 10:12 | disposition home or self-care (01) | DRG 66 ==
LOC: ER 11:20 → INTOOBSV 14:42 → MS 14:42 → OBSVTOIN 05-10 10:30
PROVIDERS: ADMIT Nurse Practitioner Acute Care; ATTEND Nurse Practitioner Acute Care
DX: I63.81 Other cerebral infarction due to occlusion or stenosis of small artery (principal); G83.21 Monoplegia of upper limb affecting right dominant side; R47.81 Slurred speech; R29.810 Facial weakness; I10 Essential (primary) hypertension; J44.9 Chronic obstructive pulmonary disease, unspecified; E11.9 Type 2 diabetes mellitus without complications; F17.210 Nicotine dependence, cigarettes, uncomplicated; E83.42 Hypomagnesemia; E86.0 Dehydration; Z86.14 Personal history of Methicillin resistant Staphylococcus aureus infection; Z86.19 Personal history of other infectious and parasitic diseases; Z86.73 Personal history of transient ischemic attack (TIA), and cerebral infarction without residual deficits; Z79.4 Long term (current) use of insulin; Z88.5 Allergy status to narcotic agent; Z88.2 Allergy status to sulfonamides

== ENCOUNTER 2018-09-29 14:02 | Emergency (ER) | payer OTHER ==
[2018-09-29 14:21] VITALS: TEMP 97.7
[2018-09-29] MEDS ORDERED: TETRACAINE HCL 0.5% OPHTH SOL 1 DROP ONE (14:32)
--- NOTE | 2018-09-29 15:02 | ED.PDOC ---
History of Present Illness - General Chief Complaint: Eye Problems Stated Complaint: right eye pain Time Seen by Provider: 09/29/18 14:08 Source: patient Exam Limitations: no limitations - History of Present Illness Initial Comments: the patient is a 58-year-old female presenting to the emergency room secondary to recurrent daily headaches that start around 11 AM each day. They tend to be more in the right side. She is concerned that this may have something to do with her carotid stent that she had put him back in May. She has no significant neurological changes. She is concerned she may be seeing a little more poorly out of her right eye however she tests 20/25 out of both eyes with her glasses on. She saw an surgical nurse practitioner a few days ago who told her she had little hemorrhages in the back of her eye and that she may want to consider getting a reevaluation of her vascular system. She has continued to have some headache a little more to the right side. she does not wake up with a headache. No syncope or near syncope. The patient is a diabetic and she takes a large amount of insulin early in the morning but does not really eat anything. She does not eat anything until 2 PM. She starts getting a headache around 11 AM. Her blood sugars vary wildly. Sometimes in the morning they drop down into the 40s or 50s but a lot of times by evening they are up around 400 or 500. again no focal neurological deficits. No real scalp tenderness to palpation. Extraocular movements are intact. Pupils are symmetrical and reactive. No pain with extraocular movements. No pain with palpation of the globes. No obvious difference in intensity of the globes. I did attempt a Victor Manuel-Pen measurement however the measurements are varying wildly so I do not trust them as an accurate result. No obvious carotid bruit on either side. Carotid pulses are symmetrical bilaterally. I see no evidence of any large hemorrhage posteriorly in the right eye. No evidence of any overt shallow anterior chamber.visual cervantes appear to be symmetrical and intact. Timing/Duration: other - essentially intermittent over the last 4 months Severity: moderate Improving Factors: nothing Worsening Factors: nothing Associated Symptoms: malaise Allergies/Adverse Reactions: Allergies Codeine Allergy (Verified 05/08/18 15:03) Vomitting Sulfa Antibiotics Adverse Reaction (Verified 05/08/18 15:03) Home Medications: Ambulatory Orders Albuterol Sulfate [Proair Hfa] 1 puff INH PRN PRN 12/20/17 Esomeprazole Magnesium [Nexium] 40 mg PO DAILY 12/20/17 Insulin Aspart [Novolog Flexpen] 20 unit SC DAILY 05/08/18 PARoxetine HCL [Paxil] 40 mg PO DAILY 05/08/18 Clopidogrel Bisulfate [Plavix] 75 mg PO DAILY #30 tab 05/12/18 Carvedilol [Coreg] 12.5 mg PO BID 09/29/18 Insulin Aspart [Novolog Flexpen] See Protocol SC AC 09/29/18 Insulin Degludec [Tresiba Flextouch] 40 unit SC DAILY 09/29/18 Ranitidine HCl 300 mg PO DAILY 09/29/18 Review of Systems - Review of Systems Constitutional: States: malaise EENTM: States: no symptoms reported Respiratory: States: no symptoms reported Cardiology: States: no symptoms reported Gastrointestinal/Abdominal: States: no symptoms reported Genitourinary: States: no symptoms reported Musculoskeletal: States: no symptoms reported Skin: States: no symptoms reported Neurological: States: headache Endocrine: States: no symptoms reported All other Systems: No Change from Baseline Past Medical History (General) - Patient Medical History Hx Seizures: No Hx Stroke: Yes Hx Asthma: Yes Hx of COPD: Yes Hx Cardiac Disorders: Yes Hx Congestive Heart Failure: No Hx Pacemaker: No Hx Hypertension: Yes Hx Diabetes: Yes Hx Renal Disease: Yes Hx Hepatitis C: Yes Hx MRSA: No MRSA Source:: Wound Surgical History: appendectomy, cholecystectomy, Hysterectomy, other - Vaccination History Hx Tetanus, Diphtheria Vaccination: Yes Hx Influenza Vaccination: No Hx Pneumococcal Vaccination: No - Social History Hx Tobacco Use: No Hx Alcohol Use: Yes Hx Substance Use: No Hx Physical Abuse: No Hx Emotional Abuse: No Family Medical History - Family History Mother Family History: No Known Living Status: Still Living Physical Exam - Physical Exam General Appearance: Alert, Comfortable, No apparent distress Eye Exam: bilateral normal - see history of present illness Ears, Nose, Throat: hearing grossly normal, normal ENT inspection, normal pharynx Neck: full range of motion, supple Respiratory: lungs clear, normal breath sounds, no respiratory distress, no accessory muscle use Cardiovascular/Chest: normal peripheral pulses, regular rate, rhythm, no edema Peripheral Pulses: radial,right: 2+, radial,left: 2+ Gastrointestinal/Abdominal: non tender, soft Rectal Exam: deferred Back Exam: no CVA tenderness, no vertebral tenderness Extremity: non-tender, normal inspection, no pedal edema, normal capillary refill Neurologic: development specialist II-XII nml as tested, alert, normal mood/affect, oriented x 3 Skin Exam: normal color Comments: Vital Signs - 24 hr 09/29/18 14:11 Temperature 97.7 F Pulse Rate [ 71 left brachial] Respiratory 20 Rate Blood Pressure 171/96 [left brachial] O2 Sat by Pulse 99 Oximetry Progress - Progress Progress: 09/29/18 15:04 the patient is a 58-year-old female presenting to emergency room secondary to concern over possible right eye vision changes and right-sided headache. visual acuity was 20/25 out of both eyes with her glasses. She needs to discuss with her primary care doctor about getting set up with an appointment with an comfort filler, as the small hemorrhages seen by her surgical nurse practitioner may require intervention over the coming months to prevent vision loss in the future. i see no evidence of any acute angle closure glaucoma here today. I see no evidence of any gross vision loss or any acute neurological changes. A repeat carotid ultrasound may be set up with her primary care doctor for the patient's peace of mind primarily. The recurrent daily headaches seem to be more likely related to blood sugar control issues. It is highly likely that the patient is bottoming out a few hours before she eats her midday meal. For this reason I'm going to have her take only 5 units of the NovoLog with her sliding scale in the morning and have her take to 20 units with sliding scale before her midday meal. Hopefully this will prevent any borderline hypoglycemia and prevent further daily headaches. Additionally this will hopefully help reduce her evening hyperglycemia that she has been experiencing. This may be dehydrating her significantly as well. To that end I do want her to drink about a gallon of water today and a gallon of water tomorrow to get back adequately hydrated. Follow up with primary care doctor towards the end of the week. ER warnings were given. Departure - Departure Clinical Impression: Recurrent headache, Diabetes mellitus, labile Disposition: Discharge to Home or Self Care Condition: Fair Departure Forms: ED Discharge - Pt. Copy, Patient Portal Self Enrollment Instructions: Headache, Adult (DC) Diet: diabetic diet Activity: increase activity as tolerated Referrals: Venu Sheehan MD [Primary Care Provider] - 1-2 Days Home Medications: Ambulatory Orders Albuterol Sulfate [Proair Hfa] 1 puff INH PRN PRN 12/20/17 Esomeprazole Magnesium [Nexium] 40 mg PO DAILY 12/20/17 Insulin Aspart [Novolog Flexpen] 20 unit SC DAILY 05/08/18 PARoxetine HCL [Paxil] 40 mg PO DAILY 05/08/18 Clopidogrel Bisulfate [Plavix] 75 mg PO DAILY #30 tab 05/12/18 Carvedilol [Coreg] 12.5 mg PO BID 09/29/18 Insulin Aspart [Novolog Flexpen] See Protocol SC AC 09/29/18 Insulin Degludec [Tresiba Flextouch] 40 unit SC DAILY 09/29/18 Ranitidine HCl 300 mg PO DAILY 09/29/18 Additional Instructions: the patient is a 58-year-old female presenting to emergency room sec ondary to concern over possible right eye vision changes and right-sided headache. visual acuity was 20/25 out of both eyes with her glasses. She needs to discuss with her primary care doctor about getting set up with an appointment with an comfort filler, as the small hemorrhages seen by her surgical nurse practitioner may require intervention over the coming months to prevent vision loss in the future. i see no evidence of any acute angle closure glaucoma here today. I see no evidence of any gross vision loss or any acute neurological changes. A repeat carotid ultrasound may be set up with her primary care doctor for the patient's peace of mind primarily. The recurrent daily headaches seem to be more likely related to blood sugar control issues. It is highly likely that the patient is bottoming out a few hours before she eats her midday meal. For this reason I'm going to have her take only 5 units of the NovoLog with her sliding scale in the morning and have her take to 20 units with sliding scale before her midday meal. Hopefully this will prevent any borderline hypoglycemia and prevent further daily headaches. Additionally this will hopefully help reduce her evening hyperglycemia that she has been experiencing. This may be dehydrating her significantly as well. To that end I do want her to drink about a gallon of water today and a gallon of water tomorrow to get back adequately hydrated. Follow up with primary care doctor towards the end of the week. ER warnings were given.
[2018-09-29 15:17] VITALS: O2SAT 95
[2018-09-29 15:26] VITALS: BP 168/99
== END 2018-09-29 15:27 | disposition home or self-care (01) ==
LOC: ER 14:02
DX: R51 Headache (principal); E11.22 Type 2 diabetes mellitus with diabetic chronic kidney disease; H57.11 Ocular pain, right eye; J44.9 Chronic obstructive pulmonary disease, unspecified; I51.9 Heart disease, unspecified; I12.9 Hypertensive chronic kidney disease with stage 1 through stage 4 chronic kidney disease, or unspecified chronic kidney disease; N18.9 Chronic kidney disease, unspecified; Z79.4 Long term (current) use of insulin; Z86.19 Personal history of other infectious and parasitic diseases; Z86.73 Personal history of transient ischemic attack (TIA), and cerebral infarction without residual deficits; Z79.899 Other long term (current) drug therapy; Z88.5 Allergy status to narcotic agent; Z88.2 Allergy status to sulfonamides

== ENCOUNTER → 2018-11-06 | Outpatient (CLI) | payer OTHER ==
--- NOTE | 2018-11-07 10:00 | CT ---
CT NECK ANGIOGRAPHY WITH IV CONTRAST HISTORY: 58 years Female OCCLUSION AND STENOSIS COMPARISON: Carotid ultrasound dated May 08, 2018. TECHNIQUE: Helical tomographic images of the neck were obtained after the intravenous administration of 100 cc of Isovue-370 utilizing an angiogram protocol. Multiplanar MIP and 3D reconstructions were created. Coronal and sagittal reformatted images were also provided. This exam was performed according to our departmental dose-optimization program, which includes automated exposure control, adjustment of the mA and/or kV according to patient size and/or use of iterative reconstruction technique. FINDINGS: Diagnostic quality: Adequate. Aorta/arch branch vessels: Mild atherosclerotic burden. Bovine arch anatomy with the left common carotid artery demonstrating common origin with the right brachiocephalic artery. Right carotid system: Right common carotid to internal carotid stent is demonstrated. There is severe stenosis of the midportion of the stent just distal to the ICA/ECA bifurcation suggesting intimal hyperplasia. No significant atherosclerotic disease or stenosis detected within the unstented portion of the right carotid system. Left carotid system: Mild atherosclerotic disease at the carotid bulb. No significant stenosis of the left ICA by NASCET criteria. Mild atherosclerotic disease within the intracranial left ICA without significant stenosis observed. Right vertebral: Mild atherosclerotic disease. No significant stenosis observed. Left vertebral: Mild atherosclerotic disease. No significant stenosis observed. REMAINDER OF THE EXAM Included surrounding soft tissues of the neck demonstrate no acute process. Thyroid, submandibular, and parotid glands are unremarkable. Included intracranial structures demonstrate no acute process. Included thorax demonstrates no acute process. There are moderate paranasal sinus mucosal thickening. Secretions layer within the sphenoid and maxillary sinuses. No acute osseous abnormality detected within the included skull or cervical spine. Multilevel degenerative changes are seen within the cervical spine. IMPRESSION: Severe stenosis at the midportion of the right common carotid to internal carotid stent suggesting intimal hyperplasia. Mild atherosclerotic disease the left carotid bulb without significant flow-limiting stenosis observed in the left carotid system. Findings suggesting acute sinusitis. Electronically signed by: Manuel Stern MD 11/07/2018 9:58 AM CDT
== END ==
LOC: CT 13:30
PROVIDERS: ATTEND Internal Medicine Interventional Cardiology
DX: I65.23 Occlusion and stenosis of bilateral carotid arteries (principal)

== ENCOUNTER → 2019-03-04 | Outpatient (CLI) | payer OTHER ==
--- NOTE | 2019-03-10 10:46 | MAM ---
EXAM DESCRIPTION: 3D Screening BILATERAL : Digital Mammography. CLINICAL HISTORY: 58 years Female Screening . No complaints. No personal or family history of breast cancer. Menarche age 14. Childbirth. Postmenopausal. No HRT. Lifetime risk of developing breast cancer (Tyrer-Cuzick model)(%): 5.9. COMPARISON: 2-D digital screening bilateral mammography 04/18/2017. TECHNIQUE: Bilateral CC and MLO projection full-field images, digital tomosynthesis mammographic technique. Bilateral digital 2-D full-field MLO images. CAD not available for tomosynthesis or 2-D images. FINDINGS: The breast parenchymal density pattern is: Scattered areas of fibroglandular density. No skin thickening or nipple retraction. Bilateral axillary lymph nodes. Bilateral solitary microcalcifications. Focal asymmetry in the upper outer quadrant of the middle third of the right breast more dense compared to the prior study and more asymmetric 6 cm from the nipple at the 9:30 position. No new focal, stellate mass or density, focal asymmetry , and no suspicious microcalcifications left breast IMPRESSION: BI-RADS CATEGORY: 0 - INCOMPLETE- Need additional imaging evaluation. FOLLOW-UP: Recall for additional imaging: Full-field LM 2-D and tomosynthesis images right breast. Directed right breast ultrasound of the region of interest. Written communication concerning the IMPRESSION and Follow-up, will be mailed to the patient and referring health care provider. Electronically signed by: Eliud De La O MD 03/10/2019 10:44 AM CDT
== END ==
LOC: MAMMO 10:51
PROVIDERS: ATTEND General Practice
DX: Z12.31 Encounter for screening mammogram for malignant neoplasm of breast (principal)

== ENCOUNTER → 2019-04-16 | Outpatient (CLI) | payer OTHER ==
--- NOTE | 2019-04-16 15:16 | US ---
EXAM DESCRIPTION: Diagnostic Mammo,Right (accession [id number]), Breast,Right (accession [id number]): Ultrasound CLINICAL HISTORY: 58 yearsFemaleADDITIONAL IMAGING focal asymmetry right breast. COMPARISON: Bilateral screening digital breast tomosynthesis second of March 2019. TECHNIQUE: Right breast LM projection full-field images, digital tomosynthesis technique. Right breast 2-D digital full-field images. LM and CC projections. CAD not available. . Transcutaneous scanning of the right breast utilizing manzanares-scale and Doppler modes. Scanning performed by the corporate banking officer ; observation by Dr. De La O. FINDINGS: The breast parenchymal density pattern is: Scattered areas of fibroglandular density. No skin thickening or nipple retraction right axillary lymph nodes. Focal asymmetry at the 9:30 clock position approximately 6 cm from the nipple. Not as well-demonstrated compared to the prior screening study. No focal, stellate mass or density, , and no suspicious microcalcifications right breast. Ultrasound: Scanning of the upper outer quadrant of the anterior middle third of the right breast. Heterogeneous fibroglandular tissues and fatty replacement. No dominant solid mass or distinct cyst. No parenchymal edema or large calcifications. No overlying skin changes.. IMPRESSION: Fibroglandular and fatty tissues. Benign exam. BIRAD CATEGORY: 2 BENIGN FINDINGS. RECOMMENDATIONS: FOLLOW UP: Return to routine digital bilateral mammographic screening, one year interval from March 2019. Written communication explaining the IMPRESSION and follow-up, will be mailed to the patient and referring health care provider. The FINDINGS and the FOLLOW-UP plan were reviewed in person with the patient after the examination. According to the [employer], yearly mammograms are recommended starting at age 40 and continuing as long as a woman is in good health. Any breast change noted on a breast self-exam should be reported promptly to the patient's healthcare provider. Breast MRI is recommended for women with an approximately 20-25% or greater lifetime risk of breast cancer, including women with a strong family history of breast or ovarian cancer and women who have been treated for Hodgkin's disease. A negative mammographic report should not delay tissue diagnosis in patients with significant clinical history or physical findings. Extremely dense breast tissue limits the sensitivity of digital mammography. Electronically signed by: Eliud De La O MD 04/16/2019 3:15 PM EFFERVESCENT SALTS COMPOUNDER
== END ==
LOC: US 11:00
PROVIDERS: ATTEND General Practice
DX: R92.8 Other abnormal and inconclusive findings on diagnostic imaging of breast (principal)
CPT/HCPCS: 76641; 77065; G0279

== ENCOUNTER 2019-10-02 | Emergency (ER) | payer OTHER | END 2019-10-02 15:29 | disposition left against medical advice (07) | DX: Z53.29 Procedure and treatment not carried out because of patient's decision for other reasons (principal) ==

== ENCOUNTER 2020-01-05 15:19 | Emergency (ER) | payer OTHER ==
[2020-01-05 17:00] VITALS: O2SAT 98
--- NOTE | 2020-01-05 17:31 | ED.PDOC ---
History of Present Illness - General Chief Complaint: Lower Extremity Injury Stated Complaint: left left pain Time Seen by Provider: 01/05/20 16:19 Source: patient Exam Limitations: no limitations - History of Present Illness Initial Comments: LEFT THIGH "MUSCLE SPASMS" SINCE HER STROKE IN MAY. HAD U/S IN [place], [place] 1 WEEK AGO; HAS NOT FOLLOWED-UP OR INQUIRED YET WITH THE DR. TO GO OVER THE RESULTS AND PLAN OF CARE. SHE THINKS IT WAS ORDERED BY DR. SHEEHAN (PCP) OR DR. BLAKE (CARDS). SEES DR. BLAKE FOR H/O STROKE. PAIN IS WORSE AT WALKING AND BETTER AT REST. WHEN WALKS, IT INCLUDES L FOOT, CALF, THIGH. Occurred: other - PRESENT FOR 8 MONTHS Pain - Lower Extremity: moderate: Left Thigh/Hip Method of Injury: other - STROKE Improving Factors: immobilization Worsening Factors: movement Allergies/Adverse Reactions: Allergies Codeine Allergy (Verified 05/08/18 15:03) Vomitting Sulfa Antibiotics Adverse Reaction (Verified 05/08/18 15:03) Home Medications: Ambulatory Orders Albuterol Sulfate [Proair Hfa] 1 puff INH PRN PRN 12/20/17 Esomeprazole Magnesium [Nexium] 40 mg PO DAILY 12/20/17 Insulin Aspart [Novolog Flexpen] 20 unit SC DAILY 05/08/18 PARoxetine HCL [Paxil] 40 mg PO DAILY 05/08/18 Clopidogrel Bisulfate [Plavix] 75 mg PO DAILY #30 tab 05/12/18 Carvedilol [Coreg] 12.5 mg PO BID 09/29/18 Insulin Aspart [Novolog Flexpen] See Protocol SC AC 09/29/18 Insulin Degludec [Tresiba Flextouch] 40 unit SC DAILY 09/29/18 Ranitidine HCl 300 mg PO DAILY 09/29/18 Tizanidine HCl [Tizanidine Hydrochloride] 2 mg PO TID PRN #15 tab 01/05/20 Review of Systems - Review of Systems Constitutional: States: no symptoms reported EENTM: States: no symptoms reported Respiratory: States: no symptoms reported Cardiology: States: no symptoms reported. Denies: chest pain Gastrointestinal/Abdominal: States: no symptoms reported Genitourinary: States: no symptoms reported Musculoskeletal: States: muscle pain. Denies: back pain, joint pain, neck pain Skin: States: no symptoms reported Neurological: Denies: headache, weakness Endocrine: States: no symptoms reported Hematologic/Lymphatic: States: no symptoms reported All other Systems: Reviewed and Negative Past Medical History (General) - Patient Medical History Hx Seizures: No Hx Stroke: Yes Hx Asthma: Yes Hx of COPD: Yes Hx Cardiac Disorders: Yes Hx Congestive Heart Failure: No Hx Pacemaker: No Hx Hypertension: Yes Hx Diabetes: Yes Hx Renal Disease: Yes Hx Hepatitis C: Yes Hx MRSA: No MRSA Source:: Wound - Vaccination History Hx Tetanus, Diphtheria Vaccination: Yes Hx Influenza Vaccination: No Hx Pneumococcal Vaccination: No - Social History Hx Tobacco Use: No Hx Alcohol Use: Yes Hx Substance Use: No Hx Physical Abuse: No Hx Emotional Abuse: No Family Medical History - Family History Mother Family History: No Known Living Status: Still Living Physical Exam - Physical Exam General Appearance: Alert, No apparent distress Eyes, Ears, Nose, Throat: PERRL/EOMI, normal ENT inspection Neck: non-tender, full range of motion Cardiovascular/Respiratory: regular rate, rhythm, no M/R/G Gastrointestinal/Abdominal: non-tender, no organomegaly Back: normal inspection, no vertebral tenderness Thigh/Hip: no evidence of injury, normal ROM Leg: normal inspection, non-tender, no evidence of injury, normal ROM Knee: normal inspection, non-tender, no evidence of injury, normal ROM Ankle: normal inspection, non-tender, no evidence of injury, normal ROM Foot: normal inspection, non-tender, no evidence of injury, normal ROM Neuro/Tendon: normal sensation, normal motor functions, normal tendon functions, responds to pain, no evidence tendon injury Mental Status: alert, oriented x 3 Skin: normal color, warm/dry Progress - Results/Orders Results/Orders: 8 MONTHS OF LLE PAIN. CLINICALLY C/W CLAUDICATION (WORSE WITH AMBULATION, IMPROVED WITH REST). DDX MOST LIKELY VASCULAR INSUFFICIENCY. PT HAS A F/U APPT IN 1 WK. RX'D MUSCLE RELAXER PER HER REQUEST TO SEE IF HELPS WITH MUSCLE SPASMS. NO IMAGING/LABS INDICATED TODAY, SHE NEEDS VASCULAR STUDIES. Departure - Departure Clinical Impression: Left thigh pain, Claudication of left lower extremity, Muscle spasm Disposition: Discharge to Home or Self Care Condition: Good Departure Forms: ED Discharge - Pt. Copy, Patient Portal Self Enrollment Diet: resume usual diet Activity: increase activity as tolerated Referrals: Venu Sheehan MD [Primary Care Provider] - 1-5 Days Prescriptions: Tizanidine HCl [Tizanidine Hydrochloride] 2 mg PO TID PRN #15 tab PRN Reason: Muscle Spasms Home Medications: Ambulatory Orders Albuterol Sulfate [Proair Hfa] 1 puff INH PRN PRN 12/20/17 Esomeprazole Magnesium [Nexium] 40 mg PO DAILY 12/20/17 Insulin Aspart [Novolog Flexpen] 20 unit SC DAILY 05/08/18 PARoxetine HCL [Paxil] 40 mg PO DAILY 05/08/18 Clopidogrel Bisulfate [Plavix] 75 mg PO DAILY #30 tab 05/12/18 Carvedilol [Coreg] 12.5 mg PO BID 09/29/18 Insulin Aspart [Novolog Flexpen] See Protocol SC AC 09/29/18 Insulin Degludec [Tresiba Flextouch] 40 unit SC DAILY 09/29/18 Ranitidine HCl 300 mg PO DAILY 09/29/18 Tizanidine HCl [Tizanidine Hydrochloride] 2 mg PO TID PRN #15 tab 01/05/20 Additional Instructions: Please follow-up with Dr. Sheehan for your leg ultrasound results, per your 01/12/[address] Sheehan regarding the pain in the left thigh, which is likely from blood flow problems in your left leg or muscle spasm.
[2020-01-05 17:59] VITALS: BP 132/78; TEMP 97.5
== END 2020-01-05 17:59 | disposition home or self-care (01) ==
LOC: ER 15:19
DX: M79.652 Pain in left thigh (principal); M62.838 Other muscle spasm; I73.9 Peripheral vascular disease, unspecified; J44.9 Chronic obstructive pulmonary disease, unspecified; I51.9 Heart disease, unspecified; I12.9 Hypertensive chronic kidney disease with stage 1 through stage 4 chronic kidney disease, or unspecified chronic kidney disease; N18.9 Chronic kidney disease, unspecified; E11.22 Type 2 diabetes mellitus with diabetic chronic kidney disease; Z86.19 Personal history of other infectious and parasitic diseases; Z86.73 Personal history of transient ischemic attack (TIA), and cerebral infarction without residual deficits; Z79.899 Other long term (current) drug therapy; Z79.4 Long term (current) use of insulin; Z79.02 Long term (current) use of antithrombotics/antiplatelets; Z88.5 Allergy status to narcotic agent; Z88.2 Allergy status to sulfonamides

== ENCOUNTER → 2020-04-05 | Outpatient (CLI) | payer OTHER ==
--- NOTE | 2020-04-07 16:03 | MAM ---
EXAM DESCRIPTION: 3D Screening BILATERAL : Digital Mammography. CLINICAL HISTORY: 59 years Female ANNUAL SCREENING . No breast complaints. Bruised ribs. No family history of breast cancer. Menarche age 14. Childbirth age 19. Menopause age unknown. No HRT. Lifetime risk of developing breast cancer (Tyrer-Cuzick model)(%): 5.7. COMPARISON: Bilateral screening digital breast tomosynthesis March 2019 and diagnostic right breast tomosynthesis and ultrasound April 2019. Bilateral screening digital breast 2-D imaging April 2017.. TECHNIQUE: Bilateral CC and MLO projection full-field images, digital tomosynthesis mammographic technique. Bilateral digital 2-D full-field MLO images. CAD available for 2-D images. FINDINGS: The breast parenchymal density pattern is: Scattered areas of fibroglandular density. No skin thickening or nipple retraction. Axillary nodes. Solitary microcalcifications. No new focal, stellate mass or density, focal asymmetry , and no suspicious microcalcifications bilaterally. Stable mammograms compared to prior study. IMPRESSION: Benign exam. BIRAD CATEGORY: 2 BENIGN FINDINGS. RECOMMENDATIONS: FOLLOW UP: Routine digital bilateral mammographic screening, one year interval from April 2020. Written communication explaining the IMPRESSION and follow-up, will be mailed to the patient and referring health care provider. According to the [employer], yearly mammograms are recommended starting at age 40 and continuing as long as a woman is in good health. Any breast change noted on a breast self-exam should be reported promptly to the patient's healthcare provider. Breast MRI is recommended for women with an approximately 20-25% or greater lifetime risk of breast cancer, including women with a strong family history of breast or ovarian cancer and women who have been treated for Hodgkin's disease. A negative mammographic report should not delay tissue diagnosis in patients with significant clinical history or physical findings. Extremely dense breast tissue limits the sensitivity of digital mammography. Electronically signed by: Eliud De La O MD 04/07/2020 4:01 PM LINK TRAINER OPERATOR
== END ==
LOC: MAMMO 10:56
PROVIDERS: ATTEND General Practice
DX: Z12.31 Encounter for screening mammogram for malignant neoplasm of breast (principal)